=== PATIENT | male | born 1965 | race African-American/Black ===

== ENCOUNTER 2025-03-13 21:33 | Emergency (ER) | payer OTHER ==
[2025-03-13 21:57] VITALS: BP 169/101; PULSE 93; RESP 18; TEMP 99; BMI 27.4
[2025-03-13] MEDS ORDERED: CIPROFLOXACIN 250 MG TABLET (RESTRICTED TO ID) PO ONE (22:26)
[2025-03-13] MEDS: CIPROFLOXACIN 500 MG TABLET (RESTRICTED TO ID) PO ONE (22:36)
== END 2025-03-13 22:39 | disposition home or self-care (01) ==
LOC: FER 21:33
PROC: 0T9B70Z Drainage of Bladder with Drainage Device, Via Natural or Artificial Opening (ICD-10-PCS; principal; 2025-03-13)
DX: R33.9 Retention of urine, unspecified (principal)
CPT/HCPCS: 51702; 99284-25